=== PATIENT | male | born 1960 | race African-American/Black ===

== ENCOUNTER 2016-06-11 00:17 | Emergency (ER) | payer BC ==
[~2016-06-11] VITALS: Ht 175.3 cm; Wt 89.8 kg
[~2016-06-11 00:17] MED LIST: IBUPROFEN600 MG ORAL; METFORMIN HCL500 M1 ORAL; REGLAN10 MG PO; ROBAXIN-750750 MG PO; TRIBENZOR 20-51 EACH ORAL; insulin
[2016-06-11] MEDS ORDERED: B-12 1,000 MCG1 EACH PO (00:47)
[2016-06-11] MEDS ORDERED: LIDOPRO OINTME121 GM TP (00:47)
[2016-06-11] MEDS ORDERED: FENOFIBRATE145 M1 ORAL (00:47)
[2016-06-11] MEDS ORDERED: GABAPENTIN300 MG ORAL (00:47)
[2016-06-11] MEDS ORDERED: CLOPIDOGREL75 MG ORAL (00:47)
[2016-06-11] MEDS ORDERED: AVAPRO300 MG ORAL (00:47)
[2016-06-11] MEDS ORDERED: TRAMADOL HCL50 MG ORAL (00:47)
[2016-06-11] MEDS ORDERED: LEVEMIR FL100 UNIT/1 SUBQ (00:47)
[2016-06-11] MEDS ORDERED: METFORMIN HCL500 M1 ORAL (00:47)
[2016-06-11] MEDS ORDERED: Norco 5mg/325mg tab ORAL ONE (01:00)
[2016-06-11 01:17] LABS: APPEARANCE,URINE CLEAR; KETONES,URINE NEGATIVE (NEGATIVE); LEUKOCYTE ESTERASE ,URINE NEGATIVE (NEGATIVE); NITRITE,URINE POSITIVE (NEGATIVE); PH,URINE 7 (4.5-8.0); PROTEIN,URINE NEGATIVE (NEGATIVE); UROBILINOGEN,URINE NORMAL MG/DL (0.0-1.0)
[2016-06-11 01:47] LABS: RBC,URINE 0 /HPF (0 - 0); WBC,URINE 0 /HPF (0 - 0)
[2016-06-11 01:48] LABS: BACTERIA,URINE OCCASIONAL /HPF; SQUAMOUS EPITHELIAL CELL,UR OCCASIONAL /LPF (NONE/OCC)
[2016-06-11] MEDS ORDERED: HYDROCODON-ACE1 EA15 ORAL (02:27)
--- NOTE | 2016-06-11 02:28 | Emergency Room Report ---
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 He presents with chief complaint of right hip pain. Onset for over a week. Also with back pain. Pain radiating down his leg. No incontinence of bowel or urine. Nothing made it better. Nothing made it worse. No fever or chills. No trauma. He has similar pain in his neck going down his left arm before. Denies any other complaint. His tramadol is not helping. Allergies: Coded Allergies: PENICILLINS (Verified Allergy, Unknown, 09/02/11) Patient History Past Medical History: see triage record, old chart reviewed, HTN Past Surgical History: other Pertinent Family History: none Social History: Denies: smoking Immunizations: other Reviewed Nursing Documentation: PMH: Agreed, PSxH: Agreed Nursing Documentation-PMH Hx Hypertension: Yes Hx Diabetes: Yes Review of Systems Eye: Denies: blurred vision, eye pain ENT: Denies: ear pain, nose congestion, throat swelling Respiratory: Denies: cough, shortness of breath Cardiovascular: Denies: chest pain, palpitations Gastrointestinal: Denies: abdominal pain, diarrhea, nausea, vomiting Musculoskeletal: Reports: back pain, Denies: joint pain Skin: Denies: rash Neurological: Denies: headache, numbness Endocrine: Denies: increased thirst, increased urine Hematologic/Lymphatic: Denies: easy bruising All Other Systems: negative except mentioned in HPI Physical Exam Vital Signs Date Time Temp Pulse Resp B/P Pulse Ox O2 Delivery O2 Flow Rate FiO2 06/11/16 00:30 97.7 89 16 178/111 100 Room Air vitals with hypertension Sp02 EP Interpretation: reviewed, normal General Appearance: well appearing, no apparent distress, alert Head: normocephalic, atraumatic Eyes: bilateral eye EOMI, bilateral eye PERRL ENT: hearing grossly normal, normal pharynx Neck: full range of motion, supple, no meningismus Respiratory: chest non-tender, lungs clear, normal breath sounds Cardiovascular #1: regular rate, rhythm, no murmur Gastrointestinal: normal bowel sounds, non tender, no mass, no organomegaly, no bruit, non-distended Musculoskeletal: back normal - No deformity. Lower lumbar tenderness over the right paraspinous muscle., gait/station normal, normal range of motion Neurologic: alert, oriented x3 Psychiatric: mood/affect normal Skin: warm/dry Medical Decision Making Diagnostic Impression: Primary Impression: Degenerative disc disease, lumbar Additional Impression: Hypertension Qualified Codes: I10 - Essential (primary) hypertension ER Course Patient present with back pain. No evidence of cauda equina syndrome, spinal after abscess, or neoplastic process. He has no symptoms from his blood pressure elevation. We'll discharge home. CT/MRI/US Diagnostic Results CT/MRI/US Diagnostic Results : Imaging Test Ordered: CT lumbar spine Impression Read by radiologist. Multi-disc bulges in lumbar area. Last Vital Signs Date Time Temp Pulse Resp B/P Pulse Ox O2 Delivery O2 Flow Rate FiO2 06/11/16 01:53 97.7 06/11/16 00:30 89 16 178/111 100 Room Air Status: improved Disposition: HOME, SELF-CARE Condition: Stable Scripts Hydrocodone/Acetaminophen 5-325* (HYDROCODONE/ACETAMINOPHEN 5-325*) 1 Each Tablet 1 TAB ORAL Q6H Y for For Pain, #30 TAB 0 Refills Prov: ORLANDO HUMPHRIES M.D. 06/11/16 Referrals: DANIELITO WHALEY (PCP) Additional Instructions: Followup with your DrTrung in 7 days. Return if symptom worsen. Recommend physical therapy. Take your blood pressure medication ORLANDO HUMPHRIES M.D. Jun 11, 2016 02:28
[2016-06-11] MEDS ORDERED: HYDROmorphone 1mg/ml Carpuject IM ONE (02:30)
[2016-06-11 02:45] VITALS: BP 179/116
[2016-06-11 02:46] VITALS: BP 178/111
--- NOTE | 2016-06-11 11:34 | Diagnostic Imaging Report ---
\H\ INDICATION: Low back pain x3 days. TECHNIQUE: Helical CT images of the lumbar spine were obtained without administration of intravenous contrast per departmental protocol. Multiplanar reformations in the coronal and sagittal planes are provided. COMPARISON: None. FINDINGS: The lumbar alignment is maintained. The vertebral body heights are maintained. There is no evidence of acute fracture. The visualized paraspinal muscles and prevertebral soft tissues are unremarkable. Punctate nonobstructing stones are seen in the lower right and left kidney. There is a small extrarenal pelvis in the lower left kidney. A 2.5 centimeter low-attenuation lesion in the lower left kidney may represent a cyst. L2-L3: Diffuse disc bulge and mild facet arthropathy result in mild spinal canal narrowing without significant neural foraminal stenosis. L3-L4: Diffuse disc bulge and mild facet arthropathy result in mild spinal canal narrowing and mild bilateral neural foraminal stenosis. L4-L5: Diffuse disc bulge and facet arthropathy result in mild spinal canal narrowing and moderate bilateral neural foraminal stenosis. L5-S1: Mild diffuse disc bulge without significant spinal canal or neural foraminal stenosis. \N\\H\IMPRESSION: 1. No acute lumbar spine fracture or subluxation. 2. Mild multilevel lumbar spondylosis as described. 3. Probable 2.5 cm left renal cyst. Punctate nonobstructing bilateral renal stones. No hydronephrosis.\N\
== END 2016-06-11 02:46 | disposition home or self-care (01) ==
LOC: EMR 00:52
DX: M51.36 Other intervertebral disc degeneration, lumbar region (principal); I10 Essential (primary) hypertension; M48.06 Spinal stenosis, lumbar region; M47.896 Other spondylosis, lumbar region; N20.0 Calculus of kidney; E11.9 Type 2 diabetes mellitus without complications; Z88.0 Allergy status to penicillin
CPT/HCPCS: 72131; 81003; 96372; 99284; J1170

== ENCOUNTER 2017-10-16 00:08 | Emergency (ER) | payer BC ==
[~2017-10-16] VITALS: Ht 175.3 cm; Wt 95.3 kg
[~2017-10-16 00:08] MED LIST changes: +AVAPRO300 MG ORAL; +B-12 1,000 MCG1 EACH PO; +CLOPIDOGREL75 MG ORAL; +FENOFIBRATE145 M1 ORAL; +GABAPENTIN300 MG ORAL; +HYDROCODON-ACE1 EA15 ORAL; +LEVEMIR FL100 UNIT/1 SUBQ; +LIDOPRO OINTME121 GM TP; +TRAMADOL HCL50 MG ORAL
[2017-10-16] MEDS ORDERED: ZITHROMAX250 MG ORAL (00:43)
[2017-10-16] MEDS ORDERED: ALBUTEROL SULF8.5 GM INH (00:43)
--- NOTE | 2017-10-16 00:43 | Emergency Room Report ---
History of Present Illness General Chief Complaint: Upper Respiratory Illness Source: Patient Present Illness HPI This is a 57-year-old male with history hypertension and diabetes. He also has a history of asthma as a kid for which she outgrew it. He presents with cough and congestion the last 2 weeks. Initially was sinus congestion now to his lung. Worse with exertion. Worse with inspiration. Denies any fever or chills. Cough is productive for sputum. Allergies: Coded Allergies: PENICILLINS (Verified Allergy, Unknown, 10/16/17) Patient History Past Medical History: see triage record, old chart reviewed, DM, HTN Past Surgical History: none Pertinent Family History: none Social History: Denies: smoking Immunizations: other Reviewed Nursing Documentation: PMH: Agreed; PSxH: Agreed Nursing Documentation-PMH Hx Hypertension: Yes Hx Diabetes: Yes Review of Systems Eye: Denies: eye pain, blurred vision ENT: Denies: ear pain, nose congestion, throat swelling Respiratory: Reports: cough, shortness of breath Cardiovascular: Denies: chest pain, palpitations Gastrointestinal: Denies: abdominal pain, diarrhea, nausea, vomiting Musculoskeletal: Denies: back pain, joint pain Skin: Denies: rash Neurological: Denies: headache, numbness Endocrine: Denies: increased thirst, increased urine Hematologic/Lymphatic: Denies: easy bruising All Other Systems: negative except mentioned in HPI Physical Exam Vital Signs Date Time Temp Pulse Resp B/P (MAP) Pulse Ox O2 Delivery O2 Flow Rate FiO2 10/16/17 00:13 98.3 101 16 189/118 95 98.2 vitals with htn Sp02 EP Interpretation: reviewed, normal General Appearance: well appearing, no apparent distress, alert Head: normocephalic, atraumatic Eyes: bilateral eye PERRL, bilateral eye EOMI ENT: hearing grossly normal, normal pharynx Neck: full range of motion, supple, no meningismus Respiratory: chest non-tender, lungs clear, other - Coughing fits with inspiration Cardiovascular #1: regular rate, rhythm, no murmur Gastrointestinal: normal bowel sounds, non tender, no mass, no organomegaly, no bruit, non-distended Musculoskeletal: back normal, gait/station normal, normal range of motion Psychiatric: mood/affect normal Skin: warm/dry Medical Decision Making Diagnostic Impression: Primary Impression: Upper respiratory infection Qualified Codes: J06.9 - Acute upper respiratory infection, unspecified Additional Impression: uncontrolled hypertension ER Course Patient with upper respiratory infection now with bronchospasm. No active wheezing going on. We'll put on inhaler. Because been ongoing for 2 weeks I will put him on antibiotics. He has not seen his blood pressure medication for the last week. Denies any headache or chest pain. Last Vital Signs Date Time Temp Pulse Resp B/P (MAP) Pulse Ox O2 Delivery O2 Flow Rate FiO2 10/16/17 00:13 98.3 101 16 189/118 95 98.2 Status: unchanged Disposition: HOME, SELF-CARE Condition: Stable Scripts Azithromycin* (ZITHROMAX*) 250 Mg Tablet 250 MG ORAL DAILY, #6 TAB 0 Refills Take two tables once daily for 1 day, then one tablet once daily for 4 days. Prov: ORLANDO HUMPHRIES M.D. 10/16/17 Albuterol Sulfate* (ALBUTEROL SULFATE MDI*) 8.5 Gm Hfa.aer.ad 2 PUFF INH Q4H PRN for cough/wheezing, #1 EA 0 Refills Prov: ORLANDO HUMPHRIES M.D. 10/16/17 Patient Instructions: Upper Respiratory Infection, Adult Additional Instructions: Take your blood pressure medication. Follow-up with your DrTrung in 3-5 days. Return if symptom worsen. ORLANDO HUMPHRIES M.D. Oct 16, 2017 00:43
[2017-10-16] MEDS ORDERED: cloNIDine 0.2mg Tab ORAL ONE (00:45)
[2017-10-16 01:10] VITALS: BP 189/118
== END 2017-10-16 01:14 | disposition home or self-care (01) ==
LOC: EMR 00:29
DX: J06.9 Acute upper respiratory infection, unspecified (principal); I10 Essential (primary) hypertension; E11.9 Type 2 diabetes mellitus without complications; Z88.0 Allergy status to penicillin
CPT/HCPCS: 99284